=== PATIENT | male | born 1985 | race Caucasian/White ===

== ENCOUNTER → 2018-04-17 08:22 | Outpatient (CLI) | payer OTHER, SELFPAY ==
--- NOTE | 2018-04-17 08:23 | DI.RAD.S_ITS ---
PROCEDURE: XR CERVICAL SPINE 2V OR 3V INDICATIONS: Neck pain TECHNIQUE: 4 view(s) of the cervical spine were acquired. COMPARISON: [facility], , XR C-SPINE 4-6V, 01/12/1996, 11:49. FINDINGS: Bones: No fractures or dislocations to the T1 level. The lateral masses of C1 appear intact on the odontoid view. No suspicious bony lesions. Mild disc space narrowing is seen at the C5-C6 level, with associated endplate irregularity and sclerosis. Minimal degenerative changes can be seen elsewhere. Soft tissues: No prevertebral soft tissue swelling. The visualized lung apices are unremarkable. IMPRESSION: Focal C5-C6 degenerative change. The degenerative changes have progressed compared to 1995. Dictated by: Angel Sena M.D. on 04/17/2018 at 8:12 Approved by: Angel Sena M.D. on 04/17/2018 at 8:15
== END ==
PROVIDERS: Visit Provider Physician Assistant
DX: M54.2 Cervicalgia (principal); M47.812 Spondylosis without myelopathy or radiculopathy, cervical region
CPT/HCPCS: 72040

== ENCOUNTER 2018-10-19 05:52 | Emergency (ER) | payer OTHER, SELFPAY ==
[2018-10-19 05:58] VITALS: BP 112/76; PULSE 60; RESP 18; TEMP 36.4; O2SAT 99; BMI 25.7
--- NOTE | 2018-10-19 06:23 | ED.EXTPRO ---
HPI - Extremity Problem General Chief complaint: Extremity Problem,Nontraumatic Stated complaint: right shoulder/neck/arm x2 days Time Seen by Provider: 10/19/18 06:09 Source: patient Mode of arrival: ambulatory Limitations: no limitations History of Present Illness HPI Narrative: Patient is a 33-year-old male here for evaluation of right shoulder pain with tingling radiating down his right arm. He states that he woke up with symptoms approximately 5 days ago. He states they have worsened over the past 5 days. No fevers. No known trauma. He has never had any symptoms like this in the past. Has tried heat and ice and massage at home without any improvement. Related Data Previous Rx's Medication Instructions Recorded olopatadine [Patanol] 1 gtt OP Q DAY #1 11/08/10 cyclobenzaprine 10 mg PO TID PRN #12 tab 10/19/18 hydrocodone-acetaminophen [Baker] 1 tab PO Q4-6H PRN #7 tab 10/19/18 prednisone 40 mg PO DAILY 3 Days #6 tab 10/19/18 Allergies Allergy/AdvReac Type Severity Reaction Status Date / Time amoxicillin [From Augmentin] AdvReac Vomiting Verified 04/17/18 07:55 Review of Systems Constitutional Denies fever(s) and Denies headache(s) ENT Ears, Nose, Mouth, and Throat: Denies headache(s) Cardiovascular Denies chest pain and Denies dyspnea Respiratory Denies dyspnea Gastrointestinal Gastrointestinal: Denies abdominal pain Genitourinary Denies dysuria Musculoskeletal Reports myalgias (Right neck pain) and Reports arthralgias (Right shoulder) Integumentary/Breasts Denies rash Neurologic Denies behavioral changes and Denies headache(s) Psychiatric Denies behavioral changes Hematologic/Lymphatic Denies easy bleeding and Denies easy bruising [facility] Medical History Patient denies medical problems (Acute) Social History Smoking Status: Never smoker Social History Smoking Status: Never smoker Exam Initial Vital Signs Initial Vital Signs: Vital Signs Temperature 97.6 F 10/19/18 05:58 Pulse Rate 60 10/19/18 05:58 Respiratory Rate 18 10/19/18 05:58 Blood Pressure 112/76 10/19/18 05:58 Pulse Oximetry 99 10/19/18 05:58 Const General: cooperative, comfortable, well developed, well groomed and No acute distress Orientation: alert, awake and oriented x3 HENMT Head: normal to inspection and normocephalic Resp Effort & Inspection: normal respiratory effort Cardio Rate: regular rate Pulses: radial pulses present on the right Back/Spine/Pelvis Cervical Spine: No collar present, cervical muscular tenderness (Right-sided), pain with cervical ROM, No cervical spinal tenderness and No step off deformity Thoracic/Lumbar Spine: No thoracic spinal tenderness and No lumbar spinal tenderness Skin Lesions: no lesions Rashes: no rashes Neuro General: alert and awake Cognition: normal cognition Speech: speech normal Extrem General: normal to inspection and capillary refill normal Psych Appearance: grossly normal and well kempt Course Orders Ordered: Discontinued Medications Hydrocodone Bitart/Acetaminophen (Baker 5/325) 1 tab PO NOW ONE Stop: 10/19/18 06:24 Last Admin: 10/19/18 06:28 Dose: 1 tab Vital Signs - 8 hr 10/19/18 05:58 Temperature 97.6 F Pulse Rate 60 Respiratory Rate 18 Blood Pressure 112/76 Pulse Oximetry 99 MDM - Extremity (Nontraumatic) MDM Narrative Medical decision making narrative: Patient with history and physical consistent with a musculoskeletal etiology and suspect muscle spasm of the right side. He does have fullness on the right side of his neck compared to the left. I discussed this with the patient. We did discuss heat and ice and massage. We did discuss the use of anti-inflammatories on a regular basis with food. He was given a pain pill here in the emergency department for symptom relief. Will send home with a short course of steroids and muscle relaxers. Patient was instructed he needed contact his primary provider later today for a follow-up next week so that if the symptoms do not improve he could discuss the indications for an MRI. Patient expressed understanding and agreement plan. Discharge Plan Departure Patient Disposition: Home Clinical Impression: Cervical radiculopathy Instructions: DI for Cervical Radiculopathy Activity Restrictions/Additional Instructions: I recommend that today you contact your primary provider to establish a follow-up appointment the beginning of next week. Take all the medications as directed. Return to the emergency department for any new or worsening symptoms Prescriptions: New cyclobenzaprine 10 mg tablet 10 mg PO TID PRN (Reason: muscle spasm) Qty: 12 RF: 0 hydrocodone-acetaminophen [Baker] 5-325 mg tablet 1 tab PO Q4-6H PRN (Reason: pain) Qty: 7 RF: 0 prednisone 20 mg tablet 40 mg PO DAILY 3 Days Qty: 6 RF: 0 No Action olopatadine [Patanol] 5 ML drops 1 gtt OP Q DAY Qty: 1 RF: 3
[2018-10-19] MEDS: HYDROCODONE/ACET 5/325 TABLET 1 TAB PO (06:28)
[2018-10-19 06:41] VITALS: BP 114/70; PULSE 56; RESP 18; O2SAT 99
== END 2018-10-19 06:40 | disposition home or self-care (01) ==
PROVIDERS: Emergency Provider Emergency Medicine
DX: M54.12 Radiculopathy, cervical region (principal)
CPT/HCPCS: 99282; 99283

== ENCOUNTER → 2018-11-02 13:34 | Outpatient (CLI) | payer OTHER, SELFPAY ==
--- NOTE | 2018-11-02 | DI.RAD.S_ITS ---
PROCEDURE: XR CERVICAL SPINE 2V OR 3V INDICATIONS: cervical radiculopathy TECHNIQUE: 4 view(s) of the cervical spine were acquired. COMPARISON: [facility], , XR CERVICAL SPINE 2V OR 3V, 04/17/2018, 8:32. FINDINGS: Bones: No fractures or dislocations to the C7-T1 level. Mild reversal of normal cervical lordosis centered at C5-6 level is seen. Degenerative endplate changes are noted at C5-6 and C6-7 levels. The lateral masses of C1 appear intact on the odontoid view. No suspicious bony lesions. Soft tissues: No prevertebral soft tissue swelling. IMPRESSION: Degenerative disc disease in lower cervical spine. No compression fracture or spondylolisthesis. Dictated by: Luke Morgan M.D. on 11/02/2018 at 14:53 Approved by: Luke Morgan M.D. on 11/02/2018 at 14:54
== END ==
PROVIDERS: PCP Family Medicine; Visit Provider Family Medicine
DX: M50.122 Cervical disc disorder at C5-C6 level with radiculopathy (principal)
CPT/HCPCS: 72040

== ENCOUNTER → 2023-03-04 11:18 | Outpatient (CLI) | payer OTHER, SELFPAY ==
--- NOTE | 2023-03-04 11:19 | DI.RAD.S_ITS ---
PROCEDURE: XR FOOT RT MIN 3V INDICATIONS: Right foot pain TECHNIQUE: 3 views of the foot were acquired. COMPARISON: None. FINDINGS: Bones: No fractures or dislocations. No suspicious bony lesions. Prominent 1st MTP arthritic change. Talar spur. Soft tissues: No tibiotalar joint effusion. Achilles tendon appears normal. IMPRESSION: No visualized acute fracture or dislocation. However, if clinical concern and/or pain persist, short interval imaging followup in 7-10 days is recommended, as occult injury cannot be definitively excluded. Dictated by: Rosario Graf M.D. on 03/04/2023 at 12:02 Approved by: Rosario Graf M.D. on 03/04/2023 at 12:03
== END ==
PROVIDERS: Referring Provider Nurse Practitioner Family; Visit Provider Nurse Practitioner Family
DX: M79.671 Pain in right foot (principal)
CPT/HCPCS: 73630

== ENCOUNTER 2023-10-07 02:03 | Observation (INO) | payer OTHER, SELFPAY ==
[2023-10-07] VITALS (17 sets, daily range): BP systolic 106–147; BP diastolic 60–92; PULSE 48–85; RESP 11–19; TEMP 36–36.8; O2SAT 96–99; BMI 26.4; BMI 27.9
--- NOTE | 2023-10-07 | PATH_ITS ---
[facility] Accession Number: [id number] No. of containers..01 Tissue . 01 Material submitted: . appendix - APPENDIX . 01 Diagnosis: APPENDIX, APPENDECTOMY: Acute appendicitis and periappendicitis. [facility] 10/12/2023 1141 Local . 01 Electronically signed: . Eden Mckinney MD, Pathologist NPI- [id number] . 01 Gross description: . Received in formalin with two identifiers and appendix, is a lees, vermiform appendix, 5.9 cm in length and up to 1.2 cm in diameter with lees, roughened serosa with adherent material consistent with exudate, and mesoappendix extending out to 1.5 cm. The margin is inked blue. The lumen contains red-brown semisolid material, and ranges from 0.3 to 0.8 cm in greatest dimension. The shin are lees and average 0.3 cm thick with no perforations or lesions identified. Retail Assistant Store Manager sections to include the margin, one-half of the bisected distal tip, and cross section are submitted in A1. ([id number]) /MRV 10/11/2023 1719 Local . 01 Pathologist provided ICD-10: K35.80 . 01 CPT . 778783 Specimen Comment: A courtesy copy of this report has been sent to [phone] Performed at: [address] [facility] [address], [place], [place] [id number] MD Javy Porras MD Phone: [phone]
--- NOTE | 2023-10-07 02:33 | ED.ABDPAIN ---
HPI - Abdominal Pain General Chief Complaint: Abdominal Pain Stated Complaint: abdominal pain and bloating Time Seen by Provider: 10/07/23 02:16 Source: patient Mode of arrival: Ambulatory Limitations: no limitations History of Present Illness HPI narrative: 38-year-old male with history of broke surgery who presents with complaint of abdominal pain. Patient states he has had similar symptoms on and off for years but it is more intense this evening. States this evening it started about 6:00 p.m. and continued to worsen as the night progressed. He sometimes takes Tums, he states he tried 1 earlier but it was not helpful. He has not taken anything else. Patient did not describes it as sort of general upper abdomen around the umbilicus but can be lower in the abdomen as well. He denies any radiation to his back. He states he is felt sort of hot and cold had subjective fevers but states when he checked his temperature was normal. Denies any nausea or vomiting. States he has been stooling normally without any black or bloody stools, denies any diarrhea or constipation. Denies any dysuria urgency or frequency. No testicular pain. Denies any lumps or hernias that he has been able to visualize her feel. He does described as feeling more bloated and full. Patient states no daily medications, he has had back surgery and neck surgery but states no prior intra-abdominal surgeries. He states he is allergic to Augmentin. Denies any regular tobacco, occasional alcohol, no recreational drugs. Related Data Allergies Allergy/AdvReac Type Severity Reaction Status Date / Time amoxicillin [From Augmentin] AdvReac Vomiting Verified 03/04/23 11:13 Review of Systems Review of Systems ROS Unobtainable: All systems reviewed & are unremarkable except as noted in HPI and below Patient History Medical History (Updated 10/07/23 @ 04:27 by Lorena López DO) Patient denies medical problems Social History Smoking Status: Never smoker Smoking Status: Never smoker alcohol intake frequency: a few times a month Substance Use Type: does not use Exam Narrative Exam Narrative: GENERAL: Alert and oriented x three, male in mild distress. HEENT: Head normocephalic, atraumatic, EOMI, pupils reactive, face symmetric, moist mucous membranes NECK: Supple, full range of motion CARDIOVASCULAR: Regular rate and rhythm without murmurs, rubs or gallops. RESPIRATORY: Breath sounds equal bilaterally, no wheezes rales or rhonchi. ABDOMEN: Soft, generalized abdominal tenderness but greatest in bilateral upper abdominal quadrants. No mass, no hernias palpated. Nondistended. Normoactive bowel sounds all 4 quadrants. No guarding or rebound, rigidity, no mass, no pulsatile mass or bruit. : No CVA tenderness EXTREMITIES: Normal range of motion, no clubbing or edema. Neurovascularly intact NEUROLOGICAL: Cranial nerves II through XII grossly intact. Moving all extremities SKIN: Warm, dry, no petechiae, no rashes or lesions. Initial Vital Signs Initial Vital Signs: Vital Signs Temperature 98.2 F 10/07/23 02:11 Pulse Rate 56 L 10/07/23 02:11 Respiratory Rate 16 10/07/23 02:11 Blood Pressure 138/92 H 10/07/23 02:11 Pulse Oximetry 98 10/07/23 02:11 Oxygen Delivery Method Room Air 10/07/23 02:11 Course Orders Ordered: ED Orders 10/07/23 02:39 CT abdomen pelvis w con Stat 10/07/23 03:02 CBC Auto Diff [Complete Blood Count AUTO DIFF] Stat CMP [Comprehensive Metabolic Panel] Stat Lipase Stat Acetaminophen (Acetaminophen 325 Mg Tablet) 650 mg PO Q6H KEAGAN Celecoxib (Celecoxib 200 Mg Capsule) 200 mg PO BID KEAGAN Gabapentin (Gabapentin 300 Mg Capsule) 300 mg PO TID KEAGAN Hydromorphone HCl (Hydromorphone 0.5 Mg Inj) 0.5 mg IV Q2H PRN PRN Reason: Pain, Severe (7-10) Ciprofloxacin (Cipro) 400 mg in 200 mls @ 200 mls/hr IV NOW ONE Stop: 10/07/23 05:23 Last Admin: 10/07/23 04:37 Dose: 200 mls/hr Documented By: HV Sodium Chloride (Normal Saline 0.9%) 1,000 mls @ 125 mls/hr IV CONT KEAGAN Lactated Ringer's (Lactated Ringers) 1,000 mls @ 100 mls/hr IV CONT KEAGAN Ciprofloxacin (Cipro) 400 mg in 200 mls @ 200 mls/hr IV Q12H KEAGAN Naloxone HCl (Naloxone 0.4 Mg/Ml Vial) 0.2 mg IV Q2MIN PRN PRN Reason: Opiate Reversal Ondansetron HCl (Ondansetron 4 Mg/2 Ml Inj) 4 mg IV Q8HR PRN PRN Reason: Nausea And Vomiting Oxycodone HCl (Oxycodone Ir 5 Mg Tablet) 5 mg PO Q3H PRN PRN Reason: Pain, Moderate (4-6) Oxycodone HCl (Oxycodone Ir 10 Mg Tablet) 10 mg PO Q3H PRN PRN Reason: Pain, Severe (7-10) Scopolamine (Scopolamine 1 Patch) 1 patch TOP NOW ONE Stop: 10/07/23 04:33 Discontinued Medications Ketorolac Tromethamine (Ketorolac 30 Mg/Ml Vial) 15 mg IV NOW ONE Stop: 10/07/23 02:40 Last Admin: 10/07/23 02:49 Dose: 15 mg Documented By: DAVID Vital Signs Vital signs: Vital Signs - 8 hr 10/07/23 02:11 10/07/23 02:28 10/07/23 02:30 Temperature 98.2 F Pulse Rate 56 L 60 Respiratory Rate 16 Blood Pressure 138/92 H 147/84 H Pulse Oximetry 98 97 Oxygen Delivery Method Room Air 10/07/23 02:30 10/07/23 03:00 10/07/23 03:00 Temperature Pulse Rate 56 L 48 L Respiratory Rate Blood Pressure 125/79 Pulse Oximetry 97 97 Oxygen Delivery Method 10/07/23 03:30 10/07/23 03:30 10/07/23 04:00 Temperature Pulse Rate 49 L 55 L Respiratory Rate Blood Pressure 132/86 Pulse Oximetry 98 96 Oxygen Delivery Method 10/07/23 04:00 Temperature Pulse Rate Respiratory Rate 18 Blood Pressure 126/83 Pulse Oximetry Oxygen Delivery Method MDM - Abdominal Pain Lab Data 10/07/23 03:02 10/07/23 03:02 Labs: Lab Results 10/07/23 Range/Units 03:02 WBC 11.6 H (4.5-11.0) X10^3/uL RBC 5.34 (4.5-5.9) X10^6/uL Hgb 16.4 (13.5-17.5) g/dL Hct 47.0 (41-53) % MCV 88.0 (80-100) fL MCH 30.6 (26-34) PG MCHC 34.8 (30-36) % RDW 12.9 (11.6-14.8) % Plt Count 214 (150-400) X10^3/uL Neut % (Auto) 87.2 H (50-75) % Lymph % (Auto) 8.6 L (25-40) % Sheridan % (Auto) 3.6 (3-14) % Eos % (Auto) 0.5 L (2-4) % Baso % (Auto) 0.1 (0-2) % Neut # (Auto) 49685 H (6783-3278) /uL Lymph # (Auto) 1000 L (6833-0225) /uL Sheridan # (Auto) 400 (0-900) /uL Eos # (Auto) 100 (0-450) /uL Baso # (Auto) 0 (0-100) /uL Sodium 141 (137-145) mmol/L Potassium 4.1 (3.4-5.1) mmol/L Chloride 103 (98-107) mmol/L Carbon Dioxide 30 (22-32) mmol/L BUN 27 H (9-20) mg/dL Creatinine 1.17 (0.66-1.25) mg/dL Estimated GFR > 60 (>60) mL/min BUN/Creatinine Ratio 23.1 H (6-22) Glucose 127 H (70-100) mg/dL Calcium 9.3 (8.4-10.2) mg/dL Total Bilirubin 0.6 (0.2-1.3) mg/dL AST 27 (17-59) IU/L ALT 26 (<50) IU/L Alkaline Phosphatase 54 (38-126) U/L Total Protein 8.1 (6.3-8.2) g/dL Albumin 5.0 (3.5-5.0) g/dL Globulin 3.1 (1.7-4.1) g/dL Albumin/Globulin Ratio 1.6 (1.0-2.8) Lipase 125 (23-300) U/L Imaging Data CT scan - abdomen/pelvis: Radiologist's Impression: Couple tiny hypodensities in the liver could be cysts or hemangiomas, tiny probable renal cysts. Minimal umbilical hernia contains fat only patulous inguinal canals with herniated bowel slightly prominent prostate. 1.2 cm dilated appendix with minimally prominent wall, 5 and 13 mm appendicolith in the appendix. Trace stranding of the fat adjacent appendix, findings suggest early acute appendicitis. 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 Lower lumbar spondylosis. MDM Narrative Medical decision making narrative: [age] year had occasional abdominal pain in the past but states much more intense persistent. Describes it as right lower quadrant. Otherwise been healthy has not had any prior intra-abdominal surgeries has had prior lower lumbar surgery White count is 11.6 otherwise normal hemoglobin and platelets, neutrophils are 87%. Sodium is 141 potassium 4.1 chloride 103 CO2 is 30 with a BUN 27 creatinine of 1.17 glucose of 127 normal calcium and LFTs with a negative lipase. CT abdomen pelvis shows changes consistent with acute appendicitis. Spoke with Dr. Lutz who accepts for appendicitis, plan for NPO, possible OR today we discussed he has not allergy to amoxicillin we will give ciprofloxacin 400 mg IV instead. She will put in orders. Patient and family at bedside updated on findings. Discharge Plan Departure Patient Disposition: Admitted as Observation Clinical Impression: Acute appendicitis Admit Date/Time: 10/07/23 04:25 Admit Provider: Manuela Lutz
--- NOTE | 2023-10-07 02:39 | DI.CT.S_ITS ---
PROCEDURE: CT ABDOMEN PELVIS W CON INDICATIONS: abd pain, general TECHNIQUE: After the administration of intravenous contrast, axial sections acquired from the lung bases to the pubic symphysis. Coronal and sagittal reformats were performed. For radiation dose reduction, the following was used: automated exposure control, adjustment of mA and/or kV according to patient size. COMPARISON: None. FINDINGS: Image quality: Diagnostic. Lower Chest: No significant findings. ABDOMEN: Liver: No solid mass. Gallbladder: No radiopaque gallstones or wall thickening. Biliary ducts: No biliary dilation. Pancreas: No ductal dilation. Spleen: Size is within normal limits. Adrenal Glands: No adrenal nodules. Kidneys and Ureters: No hydronephrosis. No solid mass. No complex renal cystic lesion which requires follow up. Stomach and Bowel: There are obstructing appendicolith at the base of the appendix, largest measuring 1.3 x 0.8 centimeters. There is distension of the distal appendix, with irregular wall thickening and periappendiceal fat stranding. Peritoneum: No abnormal intraperitoneal fluid. No free air. Ventral Wall: No significant ventral hernia. Abdominal Nodes: No retroperitoneal or mesenteric adenopathy by size criteria. Vessels: Aorta and inferior vena cava are normal in size. PELVIS: Pelvic Organs: Unremarkable. Bladder: No bladder wall thickening, accounting for underdistention. Pelvic Nodes: No enlarged lymph nodes. Miscellaneous: No inguinal hernias are seen. Bones: No aggressive osseous abnormality. IMPRESSION: Early acute appendicitis, caused by obstructing appendicoliths. Dictated by: Marcio Kinney M.D. on 10/07/2023 at 7:35 Approved by: Marcio Kinney M.D. on 10/07/2023 at 7:36
[2023-10-07] MEDS: KETOROLAC 30 MG/ML VIAL 15 MG IV (02:49)
[2023-10-07 03:14] LABS: Add Manual Diff / Slide Review NO; Basophils Absolute Auto 0 /uL (0-100); Basophils Percent Auto 0.1 % (0-2); Eosinophils Absolute Auto 100 /uL (0-450); Eosinophils Percent Auto 0.5 % (2-4); Hemoglobin 16.4 g/dL (13.5-17.5); Lymphocytes Absolute Auto 1000 /uL (1100-4500); Lymphocytes Percent Auto 8.6 % (25-40); Mean Corpuscular HGB Conc 34.8 % (30-36); Mean Corpuscular Hemoglobin 30.6 PG (26-34); Monocytes Absolute Auto 400 /uL (0-900); Monocytes Percent Auto 3.6 % (3-14); Neutrophils Absolute Auto 10100 /uL (1500-7000); Neutrophils Percent Auto 87.2 % (50-75); Platelet Count 214 X10^3/uL (150-400); Red Blood Cell Count 5.34 X10^6/uL (4.5-5.9); Red Cell Distribution Width 12.9 % (11.6-14.8); White Blood Cell Count 11.6 X10^3/uL (4.5-11.0)
[2023-10-07 03:23] LABS: Alanine Aminotransferase 26 IU/L (<50); Albumin Globulin Ratio 1.6 (1.0-2.8); Alkaline Phosphatase 54 U/L (38-126); Aspartate Aminotransferase 27 IU/L (17-59); BUN Creatinine Ratio 23.1 (6-22); Bilirubin Total 0.6 mg/dL (0.2-1.3); Blood Urea Nitrogen 27 mg/dL (9-20); Calcium 9.3 mg/dL (8.4-10.2); Carbon Dioxide 30 mmol/L (22-32); Chloride 103 mmol/L (98-107); Estimated Glomerular Filt Rate > 60 mL/min (>60); Globulin 3.1 g/dL (1.7-4.1); Glucose 127 mg/dL (70-100); HEMOLYSIS < 15 (0-50); Lipase 125 U/L (23-300); Potassium 4.1 mmol/L (3.4-5.1); Sodium 141 mmol/L (137-145); Total Protein 8.1 g/dL (6.3-8.2)
[2023-10-07] MEDS: CIPROFLOXACIN 400 MG/200 ML PIGGYBACK 200 MG IV (04:37)
[2023-10-07] MEDS: HYDROMORPHONE 0.5 MG INJ IV ×2 (05:42→07:59)
[2023-10-07] MEDS: LACTATED RINGERS 1,000 ML 100 ML IV (05:44)
--- NOTE | 2023-10-07 06:21 | PC.ADMIT ---
[email or web address] Admission Note: The patient,Petros Meyer,38 y/o, was given written information regarding hospital policies, unit procedures and contact persons. Patient's smoking status: Never smoker. Vital Signs - 8 hr 10/07/23 02:11 10/07/23 02:28 10/07/23 02:30 Temperature 98.2 F Pulse Rate 56 L 60 Respiratory Rate 16 Blood Pressure 138/92 H 147/84 H Pulse Oximetry 98 97 Oxygen Delivery Method Room Air 10/07/23 02:30 10/07/23 03:00 10/07/23 03:00 Temperature Pulse Rate 56 L 48 L Respiratory Rate Blood Pressure 125/79 Pulse Oximetry 97 97 Oxygen Delivery Method 10/07/23 03:30 10/07/23 03:30 10/07/23 04:00 Temperature Pulse Rate 49 L 55 L Respiratory Rate Blood Pressure 132/86 Pulse Oximetry 98 96 Oxygen Delivery Method 10/07/23 04:00 10/07/23 04:30 10/07/23 04:30 Temperature Pulse Rate 64 Respiratory Rate 18 Blood Pressure 126/83 126/82 Pulse Oximetry 97 Oxygen Delivery Method 10/07/23 05:00 10/07/23 05:00 10/07/23 05:52 Temperature 97.3 F L Pulse Rate 66 54 L Respiratory Rate 18 16 Blood Pressure 122/83 130/80 Pulse Oximetry 96 96 Oxygen Delivery Method Patient up to 216 via wheelchair from ED. Patient A&O, calm and cooperative. Up to bathroom independently. Abd pain controlled well w/ IVP Dilaudid.
--- NOTE | 2023-10-07 09:08 | CM.DANOTE ---
Initial DCP Assessment Visit Note Reviewed EMR and team rounds for status updates. Went to meet with pt at bedside but they had just taken him down to surgery. Pt resides independently in his own home here in [place]. Met with his girlfriend, Nicky, who was able to ask this BUSINESS OFFICE COORDINATOR questions about what to expect with his home recovery needs, she will be taking care of him postoperatively, and will also transport him home once he's medically cleared for d/c. Payor: Rosenda Attending: Dr. Lutz Pt is a 38 year-old M who presented to the ED last evening with c/o worsening abdominal pain that started around dinner time and persisted into the night. CT Abd/Pelvis was positive for acute appendicitis. Surgery was consulted, pt was made NPO, and pt was placed in OBS for planned appendectomy this morning. DCP will continue to follow and assist wtih any evolving needs, although none are anticipated at this time. Discharge Planning/Care Management CM Discharge Assessment Start: 10/07/23 08:58 Freq: Status: Active Protocol: Document 10/07/23 09:00 DPL (Rec: 10/07/23 09:08 DPL [id number]) Discharge Planning Assessment Assigned Trust Manager Assistant OSVALDO Marlow Advance Directives? No History Provided By Significant Other,Medical Record Expected Length of Stay 1 Has Patient been admitted in last 30 No days? Prior Living Arrangements House Household Members none Type of transporation used prior to Drives own vehicle admit Independent with ADL's Yes Is patient alert and oriented? Yes Comment No identified home d/c needs at this time. Barriers to Discharge No Discharge Plan Home Referrals Initiated None needed Whiteboard Updated in Patient Room with Yes name and ext. # of Trust Manager Assistant Review Status In Process Please Provide Date Initial DC 10/07/23 Assessment Was Performed
--- NOTE | 2023-10-07 09:22 | P.HP_ITS ---
History of Present Illness History of Present Illness Date Patient Seen: 10/07/23 Time Patient Seen: 09:22 Chief complaint: abdominal pain and bloating Narrative: acute appendicitis less than 24hr of abdominal pain localizing to RLQ. CT scan confirms appendicitis with fecal liths. No prior abdominal surgery. [facility] Medical History Patient denies medical problems Social History household members: none Smoking Status: Never smoker alcohol intake: current Meds Home Medications and Allergies Allergies Allergy/AdvReac Type Severity Reaction Status Date / Time amoxicillin [From Augmentin] AdvReac Vomiting Verified 03/04/23 11:13 Review of Systems Review of Systems ROS: Yes All systems reviewed with the patient and are negative except as otherwise documented Exam Vital Signs (past 8 hours): - 10/07/23 02:11 10/07/23 02:28 10/07/23 02:30 Temperature 98.2 F Pulse Rate 56 L 60 Respiratory Rate 16 Blood Pressure 138/92 H 147/84 H Pulse Oximetry 98 97 Oxygen Delivery Method Room Air Oxygen Flow Rate 10/07/23 02:30 10/07/23 03:00 10/07/23 03:00 Temperature Pulse Rate 56 L 48 L Respiratory Rate Blood Pressure 125/79 Pulse Oximetry 97 97 Oxygen Delivery Method Oxygen Flow Rate 10/07/23 03:30 10/07/23 03:30 10/07/23 04:00 Temperature Pulse Rate 49 L 55 L Respiratory Rate Blood Pressure 132/86 Pulse Oximetry 98 96 Oxygen Delivery Method Oxygen Flow Rate 10/07/23 04:00 10/07/23 04:30 10/07/23 04:30 Temperature Pulse Rate 64 Respiratory Rate 18 Blood Pressure 126/83 126/82 Pulse Oximetry 97 Oxygen Delivery Method Oxygen Flow Rate 10/07/23 05:00 10/07/23 05:00 10/07/23 05:52 Temperature 97.3 F L Pulse Rate 66 54 L Respiratory Rate 18 16 Blood Pressure 122/83 130/80 Pulse Oximetry 96 96 Oxygen Delivery Method Oxygen Flow Rate 10/07/23 07:00 10/07/23 09:10 Temperature 97.1 F L 97.4 F L Pulse Rate 70 65 Respiratory Rate 18 16 Blood Pressure 111/60 106/68 Pulse Oximetry 96 98 Oxygen Delivery Method Room Air Oxygen Flow Rate 0 Oxygen Delivery Method Room Air Oxygen Flow Rate 0 Const General: cooperative, comfortable and No anxious Nutritional Appearance: average body habitus HENVA Head: normocephalic and atraumatic Eyes General: appearance normal, both eyes and all related structures Sclera: sclerae normal Neck Neck: trachea midline, No tracheal deviation and No JVD Chest Chest: normal inspection of the chest Resp Effort & Inspection: normal respiratory effort and able to speak in complete sentences Cardio Rate: regular rate Rhythm: regular rhythm GI Palpation: soft and tender Skin General: elasticity normal and No atrophy Neuro General: patient alert, patient awake, patient oriented x3 and moves all extremities Cognition: normal cognition Psych Appearance: grossly normal Mental Status: mental status grossly normal Affect: normal affect Judgment: judgment good Objective Labs 10/07/23 03:02 10/07/23 03:02 Labs: Laboratory Results - last 24 hr 10/07/23 03:02 WBC 11.6 H RBC 5.34 Hgb 16.4 Hct 47.0 MCV 88.0 MCH 30.6 MCHC 34.8 RDW 12.9 Plt Count 214 Neut % (Auto) 87.2 H Lymph % (Auto) 8.6 L [place] % (Auto) 3.6 Eos % (Auto) 0.5 L Baso % (Auto) 0.1 Neut # (Auto) 47421 H Lymph # (Auto) 1000 L [place] # (Auto) 400 Eos # (Auto) 100 Baso # (Auto) 0 Sodium 141 Potassium 4.1 Chloride 103 Carbon Dioxide 30 BUN 27 H Creatinine 1.17 Estimated GFR > 60 BUN/Creatinine Ratio 23.1 H Glucose 127 H Calcium 9.3 Total Bilirubin 0.6 AST 27 ALT 26 Alkaline Phosphatase 54 Total Protein 8.1 Albumin 5.0 Globulin 3.1 Albumin/Globulin Ratio 1.6 Lipase 125 Assessment & Plan Assessment & Plan narrative: acute appendicitis with fecal lith Plan: lap appy Time Spent With Patient Time with patient: less than 30 minutes Quality VTE Deep Vein Thrombosis/Pulmonary Embolism Present on Admission: No
--- NOTE | 2023-10-07 09:41 | SUR.OPER ---
Supine on padded OR bed, head on pillow, left arm padded and tucked at side, right arm abducted <90 degree, legs uncrossed, safety belt at thigh, tape over blanket over lower legs .
[2023-10-07] MEDS: BUPIVACAINE 0.25% (PF) 30 ML, EPINEPHrine 0.15 MG INJ (09:44)
[2023-10-07] MEDS: LACTATED RINGERS 1,000 ML 42 ML IV (09:48)
[2023-10-07] MEDS: ACETAMINOPHEN IV 1,000 MG/100 ML VIAL 400 MG IV (10:05)
--- NOTE | 2023-10-07 10:23 | PM.OP.1 ---
Operative Date/Time/Diagnoses Date of procedure: 10/07/23 Time of procedure: 10:23 Pre-op diagnosis: Acute appendicitis with fecalith Post-op diagnosis: same Procedure & Clinicians Procedure: Laparoscopic appendectomy Same procedure as scheduled: Yes Indications: Acute appendicitis with fecalith Surgeon: Manuela Lutz Click Yes if Unassisted: Yes Operative Notes Findings: Suppurative appendicitis stage II Closure Type: primary Specimen(s): other (Appendix) Estimated Blood Loss (mL): 20 Blood products transfused: none Procedure in detail: Preop diagnosis: Acute appendicitis a fecalith Postop diagnosis: Same Operative procedure: Laparoscopic appendectomy Surgeon: Pauly Lutz MD Anesthetic: General with ET tube intubation. Along with local. Findings: Suppurative stage II appendicitis Procedure: Patient placed in a supine position. Prepped and draped in sterile fashion to expose his abdomen. Infraumbilical port site was placed using open technique a 12 mm port. Insufflation began all other ports were placed under direct vision including a 5 mm port in the suprapubic area and a 5 mm port in the left lateral abdomen. Appendix was identified, lateral attachments and appendiceal mesentery was taken down with electrocautery and good hemostasis. Base of the appendix was healthy in nature and a SHAKILA stapling device was used amputate it. The appendix was then placed into an Endo-Catch bag and pulled through the infraumbilical port site intact. Surveyed the abdomen for hemostasis and then removed all ports and began closure. Closure consisted of interrupted 0 Vicryl for fascial closure. Skin was closed with running 4-0 Vicryl. Steri-Strips and sterile dressings were placed. Patient was awakened, extubated, taken to recovery room in stable condition. Needle, instrument, sponge counts were correct. Blood loss: 20 mL Specimen: Appendix Complications: none Post-operative Condition: stable Disposition: PACU
[2023-10-07] MEDS: HYDROMORPHONE 1 MG INJ (10:37)
[2023-10-07] MEDS: OXYCODONE IR 5 MG TABLET PO (10:39)
== END 2023-10-07 14:13 | disposition home or self-care (01) ==
LOC: ED 02:16 → AC 04:25
PROVIDERS: Admitting Provider Surgery; Emergency Provider Emergency Medicine; Referring Provider Emergency Medicine; Visit Provider Surgery
PROC: 0DTJ4ZZ Resection of Appendix, Percutaneous Endoscopic Approach (ICD-10-PCS; CPT 44970; principal; 2023-10-07 09:30)
DX: K35.80 Unspecified acute appendicitis (principal); K38.1 Appendicular concretions
CPT/HCPCS: 44970; 36415; 74177; 80053; 83690; 85025; 96365; 96366; 96375; 99221; 99284; 99285; G0378; J0136; J0171; J0744; J1170; J1885; J2704; Q9967

== ENCOUNTER 2024-03-26 11:33 | Emergency (ER) | payer OTHER, SELFPAY ==
[2023-10-07 06:10] VITALS: BMI 27.9
[2024-03-26 11:40] VITALS: BP 115/76; PULSE 71; RESP 16; TEMP 36.9; O2SAT 98; BMI 26.4
--- NOTE | 2024-03-26 11:49 | DI.RAD.S_ITS ---
PROCEDURE: XR KNEE LT 3V INDICATIONS: pain/bruising/felt a pop and clicking when walking. TECHNIQUE: 3 views of the knee were acquired. COMPARISON: None. FINDINGS: Bones: No acute displaced fracture or dislocation Soft tissues: Minimal joint fluid. IMPRESSION: No acute radiographic abnormality. If there is high concern for further derangement, consider MRI evaluation. Dictated by: Kb Powers M.D. on 03/26/2024 at 13:07 Approved by: Kb Powers M.D. on 03/26/2024 at 13:07
[2024-03-26 13:28] VITALS: BP 120/61; PULSE 54; RESP 16; O2SAT 98
--- NOTE | 2024-03-26 18:35 | ED.EXTPRO ---
HPI - Extremity Problem <Ila Zavaleta PA-C - Last Filed: 04/01/24 17:48> General Chief complaint: Extremity Problem,Nontraumatic Stated complaint: L knee feels out of place Time Seen by Provider: 03/26/24 11:57 Source: patient Mode of arrival: Ambulatory History of Present Illness HPI Narrative: 39-year-old male presents to the ED with a left knee injury sustained 2-3 days ago. Patient states he was moving furniture all weekend, stood up and felt like his left knee moved. Since then, patient states he is experiencing some clicking and pain when he walks. Patient noticed some bruising on the medial aspect of knee of the left knee. No numbness, tingling, weakness. Related Data Previous Rx's Medication Instructions Recorded celecoxib 200 mg capsule (Celebrex) 200 mg PO BID #30 caps 10/07/23 Allergies Allergy/AdvReac Type Severity Reaction Status Date / Time amoxicillin [From Augmentin] AdvReac Vomiting Verified 03/26/24 11:45 Review of Systems <Ila Zavaleta PA-C - Last Filed: 04/01/24 17:48> Constitutional Constitutional: Denies chills, Denies fatigue, Denies fever(s), Denies frequent falls, Denies lethargy and Denies weakness Eyes Eyes: Denies change in vision, Denies eye discharge, Denies irritation and Denies loss of vision ENT Ears, Nose, Mouth, and Throat: Denies change in voice, Denies dizziness, Denies neck pain, Denies sore throat and Denies throat swelling Cardiovascular Cardiovascular: Denies chest pain, Denies irregular heart rhythm, Denies lightheadedness, Denies palpitations, Denies dyspnea, Denies dyspnea on exertion and Denies orthopnea Respiratory Respiratory: Denies cough, Denies dyspnea, Denies dyspnea on exertion and Denies wheezing Gastrointestinal Gastrointestinal: Denies abdominal pain, Denies change in bowel habits, Denies diarrhea, Denies nausea and Denies vomiting Musculoskeletal Musculoskeletal: Denies neck pain and Denies numbness Comments: Left knee pain, bruising Integumentary/Breasts Skin/Breast: Denies pruritus, Denies erythema, Denies rash and Denies wounds Neurologic Neurologic: Denies behavioral changes, Denies confusion, Denies dizziness, Denies frequent falls, Denies loss of vision, Denies numbness and Denies weakness Psychiatric Psychiatric: Denies anxiety, Denies behavioral changes, Denies confusion, Denies depression, Denies homicidal ideation and Denies suicidal ideation Endocrine Endocrine: Denies fatigue, Denies flushing and Denies palpitations Hematologic/Lymphatic Hematologic/Lymphatic: Denies easy bruising Allergic/Immunologic Allergic/Immunologic: Denies urticaria, Denies throat swelling and Denies wheezing Patient History <Ila Zavaleta PA-C - Last Filed: 04/01/24 17:48> Medical History Patient denies medical problems Social History household members: none Smoking Status: Never smoker alcohol intake: current Smoking Status: Never smoker alcohol intake frequency: a few times a month Substance Use Type: does not use Exam <Ila Zavaleta PA-C - Last Filed: 04/01/24 17:48> Narrative Exam Narrative: Const General:?cooperative, healthy appearing and comfortable [facility] Head:?normal to inspection Ears:?hearing grossly normal bilaterally Nose:?external nose normal Face and sinus:?normal facial exam and sinuses nontender Mouth:?oral mucosae normal Throat:?posterior oropharynx normal Eyes General:?appearance normal, both eyes and all related structures Neck Neck:?normal visual inspection and no lymphadenopathy noted Resp Effort & Inspection:?normal respiratory effort Auscultation:?clear to auscultation bilaterally Cardio Rate:?regular rate Rhythm:?regular rhythm Musculoskeletal There is mild swelling, bruising to the medial aspect of the left knee. No bony tenderness to palpation. There is full range of motion. Strength and sensation is intact. Neurovascularly intact. Neuro General:?patient alert, patient awake and patient oriented x3 Initial Vital Signs Initial Vital Signs: Vital Signs Temperature 98.4 F 03/26/24 11:40 Pulse Rate 71 03/26/24 11:40 Respiratory Rate 16 03/26/24 11:40 Blood Pressure 115/76 03/26/24 11:40 Pulse Oximetry 98 03/26/24 11:40 Oxygen Delivery Method Room Air 03/26/24 11:40 <Camila Whittaker MD - Last Filed: 04/04/24 07:18> Initial Vital Signs Initial Vital Signs: Vital Signs Temperature 98.4 F 03/26/24 11:40 Pulse Rate 71 03/26/24 11:40 Respiratory Rate 16 03/26/24 11:40 Blood Pressure 115/76 03/26/24 11:40 Pulse Oximetry 98 03/26/24 11:40 Oxygen Delivery Method Room Air 03/26/24 11:40 Course <Ila Zavaleta PA-C - Last Filed: 04/01/24 17:48> Orders Ordered: ED Orders 03/26/24 11:49 XR knee LT 3V Stat Vital Signs Vital signs: Vital Signs - 8 hr 03/26/24 11:40 03/26/24 13:28 Temperature 98.4 F Pulse Rate 71 54 L Respiratory Rate 16 16 Blood Pressure 115/76 120/61 Pulse Oximetry 98 98 Oxygen Delivery Method Room Air <Camila Whittaker MD - Last Filed: 04/04/24 07:18> Orders Ordered: ED Orders 03/26/24 11:49 XR knee LT 3V Stat Vital Signs Vital signs: Vital Signs - 8 hr 03/26/24 11:40 03/26/24 13:28 Temperature 98.4 F Pulse Rate 71 54 L Respiratory Rate 16 16 Blood Pressure 115/76 120/61 Pulse Oximetry 98 98 Oxygen Delivery Method Room Air MDM - Extremity (Nontraumatic) <Ila Zavaleta PA-C - Last Filed: 04/01/24 17:48> MDM Narrative Medical decision making narrative: 39-year-old male presents to the ED with a left knee injury sustained 2-3 days ago. X-ray was obtained which shows no acute radiographic abnormality. There is no acute displaced fracture or dislocation. Minimal joint fluid. Discussed findings with patient. Patient's symptoms most consistent with a musculoskeletal sprain/strain of the knee. Recommend Tylenol, ibuprofen, knee brace, heat/ice, follow-up with PCP for further evaluation. ED return precautions were discussed with patient. Patient verbalized understanding. Medical records reviewed: Yes Discharge Plan Departure Patient Disposition: Home Clinical Impression: Acute knee pain Qualifiers: Laterality: left Qualified Code(s): M25.562 - Pain in left knee Instructions: DI for Knee Pain Activity Restrictions/Additional Instructions: You were evaluated in the ED today for a left knee injury. Your x-ray did not show any fractures or dislocation. Your symptoms are most consistent with a musculoskeletal sprain/strain of the knee. You may take 800 mg of ibuprofen every 8 hours with food. You may also take 1000 mg of Tylenol every 8 hours. You may apply ice for the 1st 24 hours, followed by heat. You may apply a flexible knee brace for comfort. Please follow-up with your PCP as soon as possible for further evaluation. Return to the ED if you have worsening symptoms, numbness, tingling, weakness. Prescriptions: No Action celecoxib [Celebrex] 200 mg Capsule 200 mg PO BID Qty: 30 0RF Stand Alone Forms: Patient Portal/API/Survey ED Sign-out <Camila Whittaker MD - Last Filed: 04/04/24 07:18> Cosign ED Attending Cosignature Attestation: I was immediately available in the department for consultation throughout this patient's visit. Camila Whittaker MD
== END 2024-03-26 14:17 | disposition home or self-care (01) ==
PROVIDERS: Emergency Provider Student in an Organized Health Care Education/Training Program
DX: M25.562 Pain in left knee (principal); X50.1XXA Overexertion from prolonged static or awkward postures, initial encounter
CPT/HCPCS: 73562; 99283

== ENCOUNTER → 2024-11-16 09:55 | Outpatient (CLI) | payer OTHER, SELFPAY ==
[2023-10-07 06:10] VITALS: BMI 27.9
--- NOTE | 2024-11-16 09:57 | DI.RAD.S_ITS ---
PROCEDURE: XR FINGER LT MIN 2V INDICATIONS: Rule out fracture TECHNIQUE: AP hand, 2 views of the 5th finger(s) acquired. COMPARISON: None. FINDINGS AND IMPRESSION: Nondisplaced fracture of the 5th middle phalangeal base, extending to the joint. Surrounding soft tissue swelling is seen. No dislocation Dictated by: Kb Powers M.D. on 11/16/2024 at 9:46 Approved by: Kb Powers M.D. on 11/16/2024 at 9:47
== END ==
PROVIDERS: Referring Provider Chiropractor; Visit Provider Chiropractor
DX: S62.657A Nondisplaced fracture of middle phalanx of left little finger, initial encounter for closed fracture (principal); S67.10XA Crushing injury of unspecified finger(s), initial encounter; M79.89 Other specified soft tissue disorders; X58.XXXA Exposure to other specified factors, initial encounter
CPT/HCPCS: 73140